=== PATIENT | male | born 1955 | race Caucasian/White ===

== ENCOUNTER 2024-09-02 09:54 | Emergency (ER) | payer SELFPAY ==
[~2024-09-02] VITALS: Ht 177.8 cm; Wt 72.6 kg
[~2024-09-02 09:54] MED LIST: Bactrim Ds Tab1 EACH PO; CEPH500 PO
[2024-09-02 09:55] VITALS: BP 140/83
== END 2024-09-02 10:00 | disposition home or self-care (01) ==
LOC: ER 09:54
DX: Z02.79 Encounter for issue of other medical certificate (principal); Z79.2 Long term (current) use of antibiotics
CPT/HCPCS: 99283